=== PATIENT | female | born 1970 | race Caucasian/White ===

== ENCOUNTER 2017-03-11 14:50 | Inpatient (IN) | payer MEDICARE ==
--- NOTE | ~2017-03-11 | DS ---
Discharge Summary [place] [address] [facility] [place]. [address] NAME: DEBBIE LOOMIS : 68 STATUS : DIS IN PAT#: [id number] AGE: 46 ADM/REG DATE : 03/11/17 MR#: [id number] REPORT SERV DATE: 03/16/17 DICTATED BY: ABHINAV DODGE DATE: 03/15/17 REPORT STATUS : Draft TRANSCRIBED BY: KAMRAN DATE: 03/15/17 ADMISSION DATE: 03/11/2017 DISCHARGE DATE: 03/15/2017 DISCHARGE DIAGNOSES: 1. Crohn's colitis. 2. Paroxysmal atrial fibrillation, not anticoagulation candidate due to the risk of bleed. 3. History of cerebrovascular accident. 4. Iron deficiency anemia. 5. Chronic constipation. 6. Insomnia. DISCHARGE MEDICATIONS: Include: 1. Dulcolax 10 mg suppository daily. 2. Protonix 40 mg p.o. b.i.d. 3. Ambien 10 mg at bedtime as needed. 4. Prednisone taper as directed. 5. Levaquin 750 mg p.o. daily. 6. Flagyl 500 mg p.o. t.i.d. 7. Ultram 50 mg q.4 hours p.r.n. 8. Vitamin C 500 mg p.o. daily. 9. Excedrin one tab p.o. every six hours p.r.n. 10.Salonpas topically daily p.r.n. 11.Multivitamin p.o. daily. 12.Senokot-S 50/8.6 mg two tabs p.o. b.i.d. 13.MiraLAX 17 g p.o. daily. 14.Milk of magnesia 30 mL p.o. b.i.d. DISPOSITION AND FOLLOWUP: The patient medically stable for discharge once cleared by Gastroenterology. Follow up with primary care physician in one week. Follow up with GI in two to four weeks. Outpatient colonoscopy in six to eight weeks. HISTORY AND PHYSICAL: Per initial assessment. DISCHARGE VITALS: Temperature 97.8, heart rate 96, blood pressure 115/66, respiratory rate 18, O2 saturation 98 on room air. DISCHARGE LABS: WBC of 7, hemoglobin 10.8, hematocrit 32.5, platelets 359. INR 1.2. Sodium 139, potassium 3.6, chloride 106, bicarb 27, BUN 12, creatinine 0.55. Magnesium 1.9, c- reactive protein less than 2.9, sedimentation rate 9. IMAGING: KUB, 03/13/2017, decrease in amount of intestinal gas compared to previous study, moderate amount of fecal material in the colon. CT of the abdomen and pelvis, 03/11/2017, impression, focal nonspecific descending colon and sigmoid colitis resulting in relative partial obstruction. Discharge Summary [address] [place]. [address] NAME: DEBBIE LOOMIS : 68 STATUS : DIS IN PAT#: [id number] AGE: 46 ADM/REG DATE : 03/11/17 MR#: [id number] REPORT SERV DATE: 03/16/17 DICTATED BY: ABHINAV DODGE DATE: 03/15/17 REPORT STATUS : Draft TRANSCRIBED BY: KAMRAN DATE: 03/15/17 HOSPITAL COURSE: This is a 46-year-old woman with past medical history of Crohn's disease, who comes in complaining of abdominal pain associated with nausea, vomiting, and diarrhea. The patient, on admission, question of small bowel obstruction. Surgery consulted. No evidence of small bowel obstruction or need for surgical intervention. Crohn's colitis exacerbation. The patient was started on Levaquin and Flagyl. Steroids IV initially. GI consulted. Further details per consult note. RECOMMENDATIONS: Antibiotics for two weeks. An eight-week steroid taper. Follow up with them in two to four weeks. Outpatient colonoscopy in six to eight weeks. Soft diet. Initially, the patient had an NG tube placed. On the second day of admission, it was discontinued. The patient tolerated diet well afterwards. On the day of discharge, no evidence of small bowel obstruction. No complaints of abdominal pain. No complaints of nausea or vomiting. Tolerating diet well. The patient medically stable for discharge if cleared by GI on good bowel regimen. Further management as an outpatient. Instructed to return to hospital if symptoms reoccur. No evidence of melena or hematochezia. Total time for discharge planning, 35 minutes. DICTATED BY: MD RADHA Cuevas/KAMRAN Devon Walton MD / [id number] CC: MD Oscar Cuevas M.D.
--- NOTE | ~2017-03-11 | HP ---
History And Physical [place] [address] [place]. [address] NAME: DEBBIE LOOMIS : 68 STATUS : REG ER PAT#: [id number] AGE: 46 ADM/REG DATE : 03/11/17 MR#: [id number] REPORT SERV DATE: 03/11/17 DICTATED BY: VICTOR M MATHEWS DATE: 03/11/17 REPORT STATUS : Draft TRANSCRIBED BY: MODL DATE: 03/11/17 DATE OF ADMISSION: 03/11/2017 CHIEF COMPLAINT: Abdominal pain. HISTORY OF PRESENT ILLNESS: This is a 46-year-old lady with history of Crohn disease, presenting with abdominal pain. The patient reports that the patient has been suffering from constipation over the past two weeks, and then since a few days ago, it turned into an uncontrollable diarrhea. Along with that, the patient also developed severe abdominal pain. The patient also developed nausea with some vomiting. The patient came to the ER for further evaluation and care. In the ER, the patient was found to be afebrile and hemodynamically stable. The patient was slightly tachycardic with heart rate in the 100s. Initial lab evaluation revealed benign electrolytes and benign CBC except for a slight leukocytosis of 14.6. CT of the abdomen and pelvis revealed colitis as well as partial small-bowel obstruction. Internal Medicine consultation was requested for admission of the patient for further evaluation and care. REVIEW OF SYSTEMS: The patient denies any fevers or chills. Also, 14-point review of systems was reviewed and negative other than mentioned above. MEDICATIONS: The list is still pending at this time. PAST MEDICAL HISTORY: 1. Crohn disease, which was apparently diagnosed about three and a half years ago. 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 The patient does not remember her waiter/waitress cocktail lounge name, but she was started on couple of medications to include Linzess. Also, the patient apparently had an EGD and had plans for a colonoscopy, but the patient was not able to tolerate a bowel prep and thus that has been on hold. 2. 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 3. Paroxysmal AFib for which the patient used to be on Pradaxa, but she has not been on any anticoagulants due to loss of her insurance. 4. The patient reports of having had anemia diagnosed recently for which she had to have an EGD. The patient's hemoglobin today, however, is 13.3. PAST SURGICAL HISTORY: 1. EGD about a month ago. 2. The patient had some kind of procedure on her neck that left her with worsened right upper extremity weakness and pains, apparently it was not a C-spine surgery. 3. Cholecystectomy. FAMILY HISTORY: 1. Diabetes. 2. Heart problems. History And Physical [address] [address] NAME: DEBBIE LOOMIS : 68 STATUS : REG ER PAT#: [id number] AGE: 46 ADM/REG DATE : 03/11/17 MR#: [id number] REPORT SERV DATE: 03/11/17 DICTATED BY: VICTOR M MATHEWS DATE: 03/11/17 REPORT STATUS : Draft TRANSCRIBED BY: KAMRAN DATE: 03/11/17 3. Colon cancer. SOCIAL HISTORY: The patient does not smoke, drink alcohol, or use any illicit drugs. The patient is currently on disability due to the stroke. The patient lives at home with her . Also note, the patient's father three days ago and patient has been under tremendous amount of stress. PHYSICAL EXAMINATION: VITAL SIGNS: Temperature 98.7, blood pressure 127/90, pulse 100, respiratory rate is 19, saturating 100% on room air. NEUROLOGIC: The patient is alert and oriented x3 with no focal neurologic deficits. I really do not appreciate right upper extremity weaknesses as reported. GENERAL: The patient is awake, appears to be in mild amount of distress due to having the NG tube as well as abdominal pains. The patient is otherwise cooperative. NECK: No JVD. No lymphadenopathy. Normal thyroid. CHEST: No midline sternotomy scar and no tenderness to palpation. LUNGS: Clear to auscultation bilaterally with normal respiratory effort on room air. CARDIOVASCULAR: The patient is quite tachycardic, otherwise, no murmurs, rubs, or gallops, and PMI is nondisplaced. ABDOMEN: Soft, minimally tender to palpation with scant bowel sounds. Otherwise, I do not appreciate any organomegaly. EXTREMITIES: No edema. Normal distal pulses. No calf tenderness. SKIN: Clean, dry, warm, and intact. LABORATORY DATA: Sodium is 140, potassium 3.6, chloride 108, BUN 15, creatinine 0.86, glucose 122, calcium 9.2. LFTs and lipase are within normal limits. White blood cell count is 14.6, hemoglobin 13.3, platelets 365. UA shows specific gravity of 1.032 with 80 ketones, but otherwise negative for urinary tract infection. IMAGING: CT of the abdomen and pelvis shows colitis as well as partial small-bowel obstruction. Formal CT report is still pending at this time. ASSESSMENT: This is a 46-year-old lady with history of Crohn disease, presenting with a colitis as well as partial small-bowel obstruction. 1. Partial small-bowel obstruction associated with colitis, likely a Crohn's exacerbation, but cannot rule out infectious colitis. 2. Dehydration. 3. Paroxysmal atrial fibrillation. 4. History of cerebrovascular accident. PLAN: The plan is to admit the patient under telemetry monitoring. The patient will be kept n.p.o. and I will continue the NG tube to a lower intermittent wall suction. The patient will be given IV fluid hydration, and I will also start the patient on IV steroids along with IV antibiotics to cover intraperitoneal pathogens. I will ask General Surgery as well as GI to come and evaluate the patient. Otherwise, for the rest of stable past medical conditions, including AFib and CVA, I will continue home medications once the medication list becomes available. Of note, for AFib, the patient may need to be started on History And Physical [address] [address] NAME: DEBBIE LOOMIS : 68 STATUS : REG ER PAT#: [id number] AGE: 46 ADM/REG DATE : 03/11/17 MR#: [id number] REPORT SERV DATE: 03/11/17 DICTATED BY: VICTOR M MATHEWS DATE: 03/11/17 REPORT STATUS : Draft TRANSCRIBED BY: MODL DATE: 03/11/17 anticoagulation once her acute issues have been resolved. For this, we may ask Cardiology to evaluate the patient. Standard DVT prophylaxis. The patient is full code at this time. [facility]/MODL Victor M Mathews MD / [id number] CC: Oscar Tiwari M.D.
--- NOTE | ~2017-03-11 | CN ---
Consultation Report [facility] [address] [place]. [address] NAME: DEBBIE LOOMIS : 68 STATUS : ADM IN PAT#: [id number] AGE: 46 ADM/REG DATE : 03/11/17 MR#: [id number] REPORT SERV DATE: 03/14/17 DICTATED BY: BOZENA GUTIERREZ DATE: 03/13/17 REPORT STATUS : Draft TRANSCRIBED BY: MODL DATE: 03/13/17 CONSULTATION NOTE DATE OF CONSULTATION: 03/11/2017 CONSULT ATTENDING: Bozena Gutierrez MD. CONSULT SERVICE: General Surgery. REASON FOR CONSULTATION: Small bowel obstruction. HISTORY OF PRESENT ILLNESS: The patient is a 46-year-old female with multiple medical issues including chronic constipation since childhood, Crohn's disease, CVA with right-sided weakness, and complicated rhizotomy. This patient presents with persistent abdominal distention, pain, and constipation. She has had no bowel movement in three weeks but has had flatus throughout. Her pain is usually at a baseline of 8 and has progressively worsened to a 10 over the last few days. She is not on any maintenance medications for Crohn's disease due to her insurance issues. She was started on a steroid dose previously but is not currently on these. She attempts multiple enemas daily with minimal results. She has had this issue with constipation where she will go approximately 3 weeks without bowel movements for sometime now. This is not an acute change. She primarily is presenting for worse pain from best I could tell. She does report blood per rectum, both clot and bright red blood at different times but not in large volumes. She had upper GI a few weeks ago that was negative. She has not had a colonoscopy for the last 2 years and those results are unknown. There really has been no acute change to her state of health from this interaction. PAST MEDICAL HISTORY: Atrial fibrillation, Crohn's, CVA, anemia. PAST SURGICAL HISTORY: Lap sherry, section, tubal ligation, and rhizotomy. FAMILY HISTORY: Noncontributory. SOCIAL HISTORY: Denies alcohol or tobacco use. MEDICATIONS: Reviewed and in the chart. ALLERGIES: REVIEWED AND IN THE CHART. REVIEW OF SYSTEMS: A 12-point review of systems was conducted and is negative except as per HPI. PHYSICAL EXAMINATION: VITAL SIGNS: Afebrile, vital signs stable. Consultation Report [facility] [address] [place]. [address] NAME: DEBBIE LOOMIS : 68 STATUS : ADM IN PAT#: [id number] AGE: 46 ADM/REG DATE : 03/11/17 MR#: [id number] REPORT SERV DATE: 03/14/17 DICTATED BY: BOZENA GUTIERREZ DATE: 03/13/17 REPORT STATUS : Draft TRANSCRIBED BY: MODL DATE: 03/13/17 GENERAL: Awake, alert, and oriented x3. Lying on her side in the position. HEENT: Normocephalic, atraumatic. Pupils are equal, round, and reactive to light. Extraocular movements intact. Dry mucous membranes. NECK: Trachea midline. CHEST: Clear to auscultation bilaterally. HEART: Sinus tachycardia. ABDOMEN: Distended and soft. Tender to palpation minimally in the left lower quadrant. Definitely, no peritonitis. RECTAL: Demonstrated external hemorrhoids. Good tone. No blood or stool. GENITALIA: Deferred. EXTREMITIES: No edema. NEURO: Grossly intact. LABORATORY DATA: White blood cell count 14.6, hemoglobin 13, platelets 365. BMP grossly normal. IMAGING: CT of the abdomen and pelvis shows colonic distention with air and stool proximal to the inflamed sigmoid colon. There was really no small-bowel dilatation as noted by myself and the radiologist on this exam. ASSESSMENT AND PLAN: The patient is a 46-year-old female with chronic constipation, Crohn's, more likely a large-bowel obstruction, and a small-bowel obstruction. At this time, I will await GI recommendations, but she does not require any surgical intervention at this time. DICTATED BY: Dylan Bach MD ND/MODL Bozena Gutierrez MD / [id number] CC: MD Oscar Cuevas M.D.
--- NOTE | ~2017-03-11 | CN ---
Consultation Report [facility] [address] [place]. [address] NAME: DEBBIE LOOMIS : 68 STATUS : ADM IN [facility]#: [id number] AGE: 46 ADM/REG DATE : 03/11/17 MR#: [id number] REPORT SERV DATE: 03/13/17 DICTATED BY: LUISANA SIDDIQUI DATE: 03/13/17 REPORT STATUS : Draft TRANSCRIBED BY: MODL DATE: 03/13/17 GI CONSULTATION DATE OF CONSULTATION: 03/12/2017 REASON FOR CONSULTATION: Crohn's flare/colitis. HISTORY OF PRESENT ILLNESS: Ms. Loomis is a 46-year-old white female, who is reportedly diagnosed with Crohn's disease three and half years ago in [facility]. She had not been on any medication due to lack of insurance and it is unclear as to location and phenotype of patient's Crohn's disease. She last had a colonoscopy within the past two to three years and was supposed to get an EGD performed, but again due to lack of insurance had not followed through with this. She presented to [facility] with abdominal pain, nausea, vomiting, and reported constipation of the past two to three weeks, and only over the past few days prior to her admission she had some diarrhea consisting of watery stools, small in amount. White blood cell count on admission was 14.[address] scan performed showed descending sigmoid colitis with subsequent sigmoid narrowing secondary to likely inflammation. No obstruction had been noted in her small bowel. She was empirically started on Levaquin and Flagyl as well as Solu-Medrol 60 mg q.8 hours. Surgery has already been consulted due to this sigmoid narrowing seen on imaging. Lactate is 0.8. The patient reports to be feeling somewhat better, although her pain does persist, reports that her abdominal distention has gone down significantly, and has an NG tube in place to low intermittent suction. PAST MEDICAL HISTORY: History of stroke, Crohn's disease, atrial fibrillation, cholecystectomy. FAMILY HISTORY: Diabetes, heart disease. SOCIAL HISTORY: No smoking, alcohol, or drug use. MEDICATIONS: Reviewed. ALLERGIES: REVIEWED. PHYSICAL EXAMINATION: VITAL SIGNS: The patient is afebrile. Vital signs have been stable. GENERAL: The patient is a thin female, who does appear chronically ill, but in no acute distress. HEENT: Atraumatic, normocephalic. Anicteric. Mucous membranes moist, has NG tube in place. CARDIAC: S1, S2. CHEST: Clear. ABDOMEN: Soft, tender to palpation diffusely, but mostly in the left side of her abdomen. Consultation Report [place] [id number] [facility] [place]. [address] NAME: DEBBIE LOOMIS : 68 STATUS : ADM IN PAT#: [id number] AGE: 46 ADM/REG DATE : 03/11/17 MR#: [id number] REPORT SERV DATE: 03/13/17 DICTATED BY: LUISANA SIDDIQUI DATE: 03/13/17 REPORT STATUS : Draft TRANSCRIBED BY: MODL DATE: 03/13/17 EXTREMITIES: Without any edema. LABORATORY DATA: Showed WBC 7.9, hemoglobin of 11, hematocrit 34.7, platelets 253. Sodium 141, potassium 3.8, chloride 110, bicarb 21, BUN of 11, creatinine 0.57, glucose 133, albumin is 4.7, lactate is 0.8. Liver enzymes are normal. CT scan as dictated above. IMPRESSION AND PLAN: Possible Crohn's flare which appears to be large bowel inflammatory. I would like to obtain records from her GI physician in [place] including endoscopy and laboratory data. We will go ahead and check an ESR and CRP as well as a PT/INR. Continue antibiotics. Continue IV steroids. We will follow up with KUB which is ordered for tomorrow morning. Appreciate Surgery following. The patient will likely need biologic therapy to help achieve remission as well as tapering dose of steroids and continue supportive care. FRANK/KAMRAN Luisana Siddiqui MD / [id number] CC: MD Oscar Cuevas M.D.
[2017-03-11 14:36] LABS: WBC (NOT ORDERED) (RFLEX) 0 (0-5)
[2017-03-11 14:37] LABS: BASOPHILS 0.1 %; BASOPHILS ABSOLUTE 0.02 10/3/uL (0.0-0.16); EOSINOPHILS 0.1 %; EOSINOPHILS ABSOLUTE 0.01 10/3/uL (0.0-0.53); IMMATURE GRANULOCYTES 0.2 %; IMMATURE GRANULOCYTES ABSOLUTE 0.03 10/3/uL (0.0-0.11); LYMPHOCYTES 10.8 %; LYMPHOCYTES ABSOLUTE 1.57 10/3/uL (0.67-4.30); MEAN PLATELET VOLUME 10.6 fL (9.2-13.0); MONOCYTES 9.2 %; MONOCYTES ABSOLUTE 1.34 10/3/uL (0.21-1.20); NEUTROPHILS 79.6 %; RBC DISTRIBUTION WIDTH 17.4 % (12.0-16.0)
[2017-03-11 14:40] LABS: HEMATOCRIT 41.1 % (36.0-48.0); HEMOGLOBIN 13.3 g/dL (12.0-16.0); MANUAL DIFF NO %; MEAN CORPUS HGB CONC 32.4 g/dL (32.0-36.0); MEAN CORPUSCULAR HEMOGLOB 25.6 pg (26.0-34.0); PLATELET COUNT 365 10/3/uL (150-400); WHITE BLOOD CELLS 14.6 10/3/uL (4.5-10.5)
[2017-03-11 14:53] LABS: A/G RATIO 1.3 (0.7-1.9); ALBUMIN 4.7 G/DL (3.5-5.0); ALKALINE PHOSPHATASE 54 U/L (45-117); BUN (BLOOD UREA NITROGEN) 15 MG/DL (6-23); CALCIUM, SERUM 9.2 MG/DL (8.5-10.4); CHLORIDE, SERUM 108 MMOL/L (96-112); CO2 (CARBON DIOXIDE) 22 MMOL/L (24-34); CREATININE 0.86 MG/DL (0.55-1.02); DIRECT BILIRUBIN < 0.1 MG/DL (0.0-0.4); GFR AFRICAN AMERICAN 93 ML/MIN (>=60); GFR NON AFRICAN AMERICAN 80 ML/MIN (>=60); GLOBULIN 3.5 G/DL (2.5-4.1); GLUCOSE, SERUM 122 MG/DL (60-99); INDIRECT BILIRUBIN(NOT ORDER) 0.2 MG/DL (0.1-0.9); POTASSIUM, SERUM 3.6 MMOL/L (3.5-5.3); SGOT(AST) 12 U/L (5-40); SGPT(ALT) 15 U/L (5-65); SODIUM, SERUM 140 MMOL/L (135-148); TOTAL BILIRUBIN 0.3 MG/DL (0-1.2); TOTAL PROTEIN 8.2 G/DL (6.0-8.5)
[2017-03-11 16:47] LABS: ASCORBIC ACID (UR NOT ORDER) 40 (NEG); BILIRUBIN, URINE NEGATIVE (NEG); ER URINALYSIS TAT 2 Hrs 12 Mins; KETONE, URINE 80 MG/DL (NEG); LEUKOCYTE ESTERASE(NOT OR NEG (NEG); NITRITE (URINE) NEG (NEG)
[2017-03-11] MEDS ORDERED: AMB10 PO (18:07)
[2017-03-11] MEDS ORDERED: LINZESS 290 M290 MCG PO (18:08)
[2017-03-11] MEDS ORDERED: ULTRAM50 PO (18:08)
[2017-03-11] MEDS ORDERED: VITC500 PO (18:09)
[2017-03-11] MEDS ORDERED: *UNABLE1 (18:09)
[2017-03-11] MEDS ORDERED: MUSCLE RELAXER PO (18:09)
[2017-03-11 22:44] LABS: PROCALCITONIN <0.05 ng/mL (<0.5)
[2017-03-12 04:59] LABS: BASOPHILS 0 %; EOSINOPHILS 0 %; HEMATOCRIT 34.7 % (36.0-48.0); IMMATURE GRANULOCYTES 0.1 %; IMMATURE GRANULOCYTES ABSOLUTE 0.01 10/3/uL (0.0-0.11); LYMPHOCYTES 6.2 %; LYMPHOCYTES ABSOLUTE 0.49 10/3/uL (0.67-4.30); MEAN CORPUS HGB CONC 31.7 g/dL (32.0-36.0); MEAN CORPUSCULAR HEMOGLOB 25.1 pg (26.0-34.0); MEAN CORPUSCULAR VOLUME 79.2 fL (80-100); MEAN PLATELET VOLUME 10.3 fL (9.2-13.0); MONOCYTES ABSOLUTE 0.16 10/3/uL (0.21-1.20); NEUTROPHILS 91.7 %; NEUTROPHILS ABSOLUTE 7.28 10/3/uL (2.02-8.40); PLATELET COUNT 253 10/3/uL (150-400); RBC DISTRIBUTION WIDTH 17.4 % (12.0-16.0); RED CELL COUNT 4.38 10/6/uL (4.0-5.6); WHITE BLOOD CELLS 7.9 10/3/uL (4.5-10.5)
[2017-03-12 05:00] LABS: MANUAL DIFF NO %
[2017-03-12 05:05] LABS: CALCIUM, SERUM 8.6 MG/DL (8.5-10.4); CHLORIDE, SERUM 110 MMOL/L (96-112); CO2 (CARBON DIOXIDE) 21 MMOL/L (24-34); CREATININE 0.57 MG/DL (0.55-1.02); GFR AFRICAN AMERICAN 128 ML/MIN (>=60); GFR NON AFRICAN AMERICAN 110 ML/MIN (>=60); GLUCOSE, SERUM 133 MG/DL (60-99); POTASSIUM, SERUM 3.8 MMOL/L (3.5-5.3); SODIUM, SERUM 141 MMOL/L (135-148)
[2017-03-12 05:06] LABS: BUN (BLOOD UREA NITROGEN) 11 MG/DL (6-23)
[2017-03-12] MEDS ORDERED: EXCEDRIN EXTRA1 EACH PO (13:24)
[2017-03-12] MEDS ORDERED: [UNRECOGNIZED DRUG - OTHER] TOP (13:25)
[2017-03-12] MEDS ORDERED: MULTIVITAMI1 PO (13:28)
[2017-03-12 16:26] LABS: FERRITIN 8 NG/ML (8-252); IRON BINDING CAPACITY 323 MCG/DL (225-410); IRON, SERUM 26 MCG/DL (35-150)
[2017-03-13 06:58] LABS: INTERNATIONAL NORMAL RATI 1.2 UNITS (-); PROTIME (NOT ORD) 14.8 SEC (12.0-14.5)
[2017-03-13 07:01] LABS: BASOPHILS 0 %; EOSINOPHILS 0 %; HEMATOCRIT 33.5 % (36.0-48.0); HEMOGLOBIN 10.8 g/dL (12.0-16.0); IMMATURE GRANULOCYTES 0.3 %; IMMATURE GRANULOCYTES ABSOLUTE 0.02 10/3/uL (0.0-0.11); LYMPHOCYTES ABSOLUTE 0.49 10/3/uL (0.67-4.30); MANUAL DIFF NO %; MEAN CORPUS HGB CONC 32.2 g/dL (32.0-36.0); MEAN CORPUSCULAR HEMOGLOB 25.6 pg (26.0-34.0); MEAN CORPUSCULAR VOLUME 79.4 fL (80-100); MEAN PLATELET VOLUME 10.4 fL (9.2-13.0); MONOCYTES 5.4 %; MONOCYTES ABSOLUTE 0.38 10/3/uL (0.21-1.20); NEUTROPHILS 87.3 %; NEUTROPHILS ABSOLUTE 6.12 10/3/uL (2.02-8.40); PLATELET COUNT 259 10/3/uL (150-400); RBC DISTRIBUTION WIDTH 17.4 % (12.0-16.0); RED CELL COUNT 4.22 10/6/uL (4.0-5.6)
[2017-03-13 07:05] LABS: BUN (BLOOD UREA NITROGEN) 12 MG/DL (6-23); CALCIUM, SERUM 8.6 MG/DL (8.5-10.4); CHLORIDE, SERUM 106 MMOL/L (96-112); CO2 (CARBON DIOXIDE) 27 MMOL/L (24-34); CREATININE 0.55 MG/DL (0.55-1.02); GFR AFRICAN AMERICAN 129 ML/MIN (>=60); GFR NON AFRICAN AMERICAN 112 ML/MIN (>=60); GLUCOSE, SERUM 132 MG/DL (60-99); POTASSIUM, SERUM 3.6 MMOL/L (3.5-5.3); SODIUM, SERUM 139 MMOL/L (135-148)
[2017-03-13 07:09] LABS: C-REACTIVE PROTEIN < 2.9 MG/L (<8.0)
[2017-03-13 09:43] LABS: SED RATE 9 MM/HR (0-20)
[2017-03-15] MEDS ORDERED: BISR PR (15:13)
[2017-03-15] MEDS ORDERED: ZOFRAN ODT4 MG PO (15:14)
[2017-03-15] MEDS ORDERED: LEVAQUIN750 MG PO (15:16)
[2017-03-15] MEDS ORDERED: PROTONIX PO (15:16)
[2017-03-15] MEDS ORDERED: FLAG500TAB PO (15:17)
[2017-03-15] MEDS ORDERED: SENTAB PO (15:17)
[2017-03-15] MEDS ORDERED: FERROUS SULF325 M1 PO (15:18)
[2017-03-15] MEDS ORDERED: MIRALAX POWDER1 PKT PO (15:19)
[2017-03-15] MEDS ORDERED: MOMUD PO (15:20)
[2017-03-15] MEDS ORDERED: P10 PO (15:21)
== END 2017-03-15 16:49 | disposition home or self-care (01) | DRG 386 ==
LOC: ER 14:50 → 7NO 19:17
PROVIDERS: Emergency Medicine; Internal Medicine
DX: K50.112 Crohn's disease of large intestine with intestinal obstruction (principal); I69.351 Hemiplegia and hemiparesis following cerebral infarction affecting right dominant side; E86.0 Dehydration; I48.0 Paroxysmal atrial fibrillation; D50.9 Iron deficiency anemia, unspecified; Z83.3 Family history of diabetes mellitus; K59.00 Constipation, unspecified; G47.00 Insomnia, unspecified
CPT/HCPCS: 74000; 74176; 80048; 80053; 81001; 82248; 82728; 83540; 83550; 83605; 83690; 83735; 84145; 84703; 85025; 85610; 85652; 86140; 96374; 96375; 99285; A9270-GY; C9113; J1170; J1956; J2405; J2550; J2800; J2930